=== PATIENT | male | born 1985 | race Caucasian/White ===

== ENCOUNTER 2019-11-13 20:27 | Emergency (ER) | payer SELFPAY ==
--- NOTE | 2019-11-13 21:16 | CR ---
Chest: 2 views of the chest were obtained. Comparison: No prior chest imaging is available. Heart size and mediastinum are normal. Lungs are clear with no acute parenchymal change. Bony structures are within normal limits. Impression: 1. Nothing acute is appreciated on 2 view chest x-ray. Diagnostic code #1 This report was dictated in [place] Standard Time
[2019-11-13] MEDS ORDERED: Ketorolac 30 MG/ML SDV IM ONE (22:14)
[2019-11-13] MEDS ORDERED: Ondansetron 4 MG Tab.DIS PO ONE (22:14)
--- NOTE | 2019-11-13 22:53 | EDM.PDOC ---
ED [facility] GENERAL MEDICAL PROBLEM - General Chief Complaint: Respiratory Problem Stated Complaint: COUGH AND FLU Time Seen by Provider: 11/13/19 21:00 Source of Information: Reports: Patient History Limitations: Reports: No Limitations - History of Present Illness INITIAL COMMENTS - FREE TEXT/NARRATIVE: Patient is 34-year-old male with no significant past medical history presenting with chief complaint of cough and fever. Patient was recently diagnosed with the flu several days ago and has been taking [id number] medication along with amoxicillin for his symptoms. Amoxicillin was prescribed by his primary care physician. Patient's symptoms are cough, chest congestion, body aches, fever. Symptoms seem to be progressively worsening. Patient denies any associated shortness of breath or difficulty breathing. Patient does report several children also with influenza have not improved in their symptoms. Patient denies any headache or neck stiffness. Patient otherwise has been missing work secondary to the symptoms. Pmhx: None Pshx: None Family Hx: noncontributory Smoking history? no Etoh use? none Drug use? none In addition to that documented in the HPI above, the additional ROS was obtained : Constitutional: Per HPI Eyes: Denies vision changes ENMT: Denies sore throat CV: Denies chest pain Resp: Denies SOB GI: Per HPI : Denies painful urination MSK: Denies recent trauma Skin: Denies new rashes Neuro: Denies new numbness or tingling or weakness Endocrine: Denies unexpected weight loss Heme: Denies bleeding disorders I have reviewed the triage vital signs Const: Well nourished, well developed, appears stated age Eyes: PERRL, no conjunctival injection HENT: NCAT, Neck supple without meningismus CV: RRR, Warm, well-perfused extremities RESP: CTAB, Unlabored respiratory effort GI: soft, non-tender, non-distended, no masses MSK: No gross deformities appreciated Skin: Warm, dry. 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 Sensation and motor function of extremities grossly intact. Psych: Appropriate mood and affect Assessment and plan: Patient is 34-year-old male presenting with previously diagnosed influenza A. Patient is well in appearance and does not demonstrate any clinical evidence of dehydration. Patient has been having some vomiting associated with this but is tolerating oral liquids at this time. Patient did not have any respiratory distress and chest x-ray is negative for evidence of pneumonia. Patient will be discharged home with prescription for Zofran to help with nausea and vomiting. All questions were addressed and answered. Patient was given strict return precautions. Patient will be discharged home and treated as an outpatient. generalized Pain Score (Numeric/FACES): 8 - Related Data Allergies Allergy/AdvReac Type Severity Reaction Status Date / Time No Known Allergies Allergy Verified 11/13/19 20:48 Home Meds: Home Meds Benzonatate [Tessalon Perle] 100 mg PO TID #30 capsule 11/13/19 [Rx] Ondansetron [Zofran ODT] 4 mg PO Q6H PRN #12 tab.dis 11/13/19 [Rx] Past Medical History HEENT History: Reports: None Cardiovascular History: Reports: None Respiratory History: Reports: None Gastrointestinal History: Reports: None Genitourinary History: Reports: None Musculoskeletal History: Reports: None Neurological History: Reports: None Psychiatric History: Reports: None Endocrine/Metabolic History: Reports: None 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: N/A Hematologic History: Reports: None Immunologic History: Reports: None Dermatologic History: Reports: None - Infectious Disease History Infectious Disease History: Reports: None - Past Surgical History Head Surgeries/Procedures: Reports: None Social & Family History - Family History Family Medical History: Noncontributory - Tobacco Use Smoking Status *Q: Never Smoker - Caffeine Use Caffeine Use: Reports: None - Recreational Drug Use Recreational Drug Use: No ED ROS GENERAL - Review of Systems Review Of Systems: See Below ED EXAM, GENERAL - Physical Exam Exam: See Below Course - Vital Signs Last Recorded V/S: Last Vital Signs Temp 37.9 C 11/13/19 20:48 Pulse 100 11/13/19 23:06 Resp 20 11/13/19 23:06 BP 119/63 11/13/19 23:06 Pulse Ox 98 11/13/19 23:06 - Orders/Labs/Meds Meds: Medications Discontinued Medications Generic Name Dose Route Start Last Admin Trade Name Freq PRN Reason Stop Dose Admin Ketorolac Tromethamine 30 mg 11/13/19 22:14 11/13/19 22:33 Toradol IM 11/13/19 22:15 30 mg ONETIME ONE Administration Ondansetron HCl 4 mg 11/13/19 22:14 11/13/19 22:33 Zofran Odt PO 11/13/19 22:15 4 mg ONETIME ONE Administration Departure - Departure Time of Disposition: 22:53 Disposition: Home, Self-Care 01 Clinical Impression: Influenza - Discharge Information Prescriptions: Benzonatate [Tessalon Perle] 100 mg PO TID #30 capsule Ondansetron [Zofran ODT] 4 mg PO Q6H PRN #12 tab.dis PRN Reason: Nausea/Vomiting Instructions: Influenza, Adult, [id number] Referrals: PCP,None [Primary Care Provider] - Forms: ED Department Discharge Additional Instructions: The following information is given to patients seen in the emergency department who are being discharged to home. This information is to outline your options for follow-up care. We provide all patients seen in our emergency department with a follow-up referral. The need for follow-up, as well as the timing and circumstances, are variable depending upon the specifics of your emergency department visit. If you don't have a primary care physician on staff, we will provide you with a referral. We always advise you to contact your personal physician following an emergency department visit to inform them of the circumstance of the visit and for follow-up with them and/or the need for any referrals to a consulting specialist. The emergency department will also refer you to a specialist when appropriate. This referral assures that you have the opportunity for follow-up care with a specialist. All of these measure are taken in an effort to provide you with optimal care, which includes your follow-up. Under all circumstances we always encourage you to contact your private physician who remains a resource for coordinating your care. When calling for follow-up care, please make the office aware that this follow-up is from your recent emergency room visit. If for any reason you are refused follow-up, please contact the [facility] Emergency Department at and asked to speak to the emergency department charge nurse. Sepsis Event Note - Evaluation Sepsis Screening Result: No Definite Risk - Focused Exam Vital Signs: Vital Signs Temp Pulse Resp BP Pulse Ox 11/13/19 23:06 100 20 119/63 98 11/13/19 21:45 108 H 20 135/80 96 11/13/19 20:48 37.9 C 108 H 20 134/83 94 L Date Exam was Performed: 11/14/19 Time Exam was Performed: 04:37
== END 2019-11-13 23:07 | disposition home or self-care (01) ==
LOC: MW.ED 20:27
DX: J11.1 Influenza due to unidentified influenza virus with other respiratory manifestations (principal)
CPT/HCPCS: 71046; 96372; 99283; A9270; J1885